=== PATIENT | male | born 1955 | race Asian ===

== ENCOUNTER → 2016-06-21 | Outpatient (CLI) | payer OTHER ==
[~2016-06-21] MED LIST: NEXIUM40 MG PO; NORCO 10-325 T1 EACH PO; ROBAXIN 750 MG750 M1 PO
== END ==
LOC: MRI 06-08 02:13
DX: M47.26 Other spondylosis with radiculopathy, lumbar region (principal); M48.06 Spinal stenosis, lumbar region; M54.5 Low back pain

== ENCOUNTER → 2016-07-19 | Outpatient (CLI) | payer OTHER ==
[~2016-07-19] VITALS: Ht 185.4 cm; Wt 97.1 kg
--- NOTE | ~2016-07-19 | HPC ---
[facility] [address] [place] [address] PAIN MANAGEMENT CONSULTATION Name: TYE BISWAS Room #: REG CECELIA Dove#: [id number] Admission: 07/19/16 Attend Phys: Bowen Mendez DO Discharge: Date of : 53 Report #: [id number] THIS REPORT FOR: //name// CC: JOANNA Mendez HISTORY OF PRESENT ILLNESS: The patient is a 60-year-old gentleman seen in consultation at the request of Dr. Mckoy for evaluation of pain in the low back and left leg. The patient had had prior symptoms well relieved with decompressive laminectomy in 2011. Symptoms began to recur about 4 years ago, in fact he has been unable to work for the past 4 years due to ongoing pain, primarily low back, left greater than right leg posterior aspect exacerbated with standing, walking and bending. He describes constant, intermittent, transient, burning, shooting, pulling pain; rates anywhere from 5-10 on a 0-10 visual analog scale. He has only taken olxr-yic-tdaovfn anti-inflammatory medications. He denies bowel or bladder continence changes. He does have subjective weakness and paresthesia in legs, left greater than right. REVIEW OF SYSTEMS: Complete review of systems attached to chart and gone over with the patient. He is , seen in the company of his who is supportive. She does some of the translating form, his Gambian is somewhat poor. He does not smoke, drink alcohol to excess. Other than back issues, he has enjoyed remarkably good health. He takes no other medications. PHYSICAL EXAMINATION: Shows 6 feet 1 inch, 206 pounds gentleman, BMI is 28.2 kilograms per meter squared. Cranial nerves 2-12 are grossly intact. Pupils equal, reactive to light and accommodation. Extraocular muscles are intact. There is no nystagmus or lateral gaze deviation. Blood pressure 102/66, pulse 74, respirations 16. Thyroid is unremarkable. Upper extremity strength is preserved. Heart is regular and rhythmical without murmur. Lungs clear to auscultation. Rises from chair using armrest. Has somewhat of a antalgic gait favoring the left leg. Diffuse tenderness across the low back. No discrete trigger points are noted. Right leg shows good strength 4-5/5 to all muscle groups tested, left leg does show diminished dorsiflexion and hip flexion strength is about 3/5, all else is perhaps 4/5. DIAGNOSTIC STUDIES: Include MRI of the lumbar spine from 06/21/2016 noting L4-L5 to have significant stenosis left greater than right neural foraminal narrowing. It does show history of left L4-L5 hemilaminectomy on this side. L3-L4 similarly shows stenosis down to 0.66 mm on this side. ASSESSMENT: Symptomatic lumbar radiculopathy by clinical exam and history. 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 We elected to proceed with the midline epidural injection today. Follow up in 3-4 weeks for reevaluation and consideration for left L4-L5 transforaminal epidural injection if indicated clinically at next visit. ASSESSMENT: Symptomatic lumbar radiculopathy status post decompressive laminectomy. PROCEDURE: Lumbar epidural injection under fluoroscopy. PROCEDURE NOTE: After both written and informed consent to include risk of spinal cord damage, increased pain, weakness and dural puncture, the patient was taken to the fluoroscopy suite, placed in the prone position. After sterile prep and drape, a skin wheal with lidocaine was raised. A 22-gauge epidural Tuohy needle was inserted in the midline at L4-L5 with good loss to resistance. Negative aspiration for cerebrospinal fluid or blood was noted. Then 1 mL of Omnipaque under biplanar fluoroscopy showed good spread within the epidural space. This was followed with 80 mg of triamcinolone plus 1 mL of 1.5% preservative-free Xylocaine, 0.5 mL Xylocaine was then injected to flush the needle; it was removed. The patient was monitored for an appropriate period of time and discharged in good and stable condition. <ELECTRONICALLY SIGNED> By: Bowen Mendez DO 07/20/16 0837 1216 [id number] Bowen Mendez DO /nt
[2016-07-19 10:48] VITALS: BP 102/66
== END | disposition home or self-care (01) ==
LOC: PAIN 07:13
DX: M54.16 Radiculopathy, lumbar region (principal); M48.06 Spinal stenosis, lumbar region

== ENCOUNTER → 2018-01-27 | Outpatient (CLI) | payer OTHER ==
[~2018-01-27] VITALS: Ht 185.4 cm; Wt 95.3 kg
[~2018-01-27] MED LIST changes: +COMBIGAN EYE DR10 ML OPHTHALMIC; +ESOMEPRAZOLE MA20 MG PO; +XALATAN2.5 ML OPHTHALMIC
--- NOTE | ~2018-01-27 | PATH ---
[facility] [address] [place] [address] PATHOLOGY RPT PROCEDURE Name: TYE BISWAS Room #: SREEDHAR RAI Caleb.#: [id number] Admission: 01/27/18 Date of : 53 Discharge: Report #: [id number] Path Case #: [id number] [facility] Accession Number: [id number] . 01 Material submitted: . PART A: RANDOM GASTRIC BX R/O H. PYLORI PART B: GASTRIC POLYP PART C: POLYP AT CECUM PART D: POLYP AT TRANSVERSE COLON PART E: POLYP AT SIGMOID COLON . 01 Clinical history: . Pre-OP DX: GERD, family HX colon cancer Post-OP DX: Gastritis, gastric polyp, colon polyps . 02 Diagnosis: A. Gastric mucosa, random rule out H. pylori, endoscopic biopsy: - Mild reactive gastropathy with focal intestinal metaplasia. - Negative for atrophy or dysplasia. - Negative for Helicobacter pylori (properly controlled immunohistochemical stain performed). . B. Gastric mucosa, gastric polyp, endoscopic biopsy: - Occasional dilated fundic gland, compatible with a minute fundic gland polyp. - Negative for dysplasia. . C. Polyp, at cecum, endoscopic biopsy: - Tubular adenoma. - Negative for high-grade dysplasia. . D. Polyp, at transverse colon, endoscopic biopsy: - Tubular adenoma. - Negative for high-grade dysplasia. . E. Polyp, at sigmoid colon, endoscopic biopsy: - Tubular adenoma. - Negative for high-grade dysplasia. (IUV:pit 01/28/2018) QTP/01/28/2018 . 02 Electronically signed: . Rhona Lozano MD, Pathologist NPI- [id number] . 01 Gross description: . A. Received in formalin labeled "Tye Biswas, random gastric BX, rule out [address] [address] PATHOLOGY RPT PROCEDURE Name: TYE BISWAS Room #: REG CECELIA Dove#: [id number] Admission: 01/27/18 Date of : 53 Discharge: Report #: [id number] Path Case #: [id number] H. pylori," are 4 segments of herrera soft tissue measuring 1.2 x 0.6 x 0.2 cm in aggregate dimensions and ranging from 0.4 to 0.5 cm in maximum dimension. The specimen is submitted entirely in cassette A1. . B. Received in formalin labeled "Tye Biswas, gastric polyp," are 2 segments of herrera soft tissue measuring 0.7 x 0.3 x 0.2 cm in aggregate dimensions and ranging from 0.3 to 0.4 cm in maximum dimension. The specimen is submitted entirely in cassette B1. . C. Received in formalin labeled "Tye Biswas, polyp at cecum," is a single segment of herrera soft tissue measuring 0.3 cm in maximum dimension. The specimen is entirely submitted in cassette C1. . D. Received in formalin labeled "Rachell Liming, polyp at transverse colon," are 5 segments of herrera soft tissue measuring 0.9 x 0.9 x 0.1 cm in aggregate dimensions and ranging from 0.2 to 0.5 cm in maximum dimension. The specimen is submitted entirely in cassette D1. . E. Received in formalin labeled "Rachell Liming, polyp at sigmoid colon," are 3 segments of herrera soft tissue measuring 0.8 x 0.5 x 0.1 cm in aggregate dimensions and ranging from 0.2 to 0.3 cm in maximum dimension. The specimen is submitted entirely in cassette E1. (TSD; 01/27/2018) TOB/TOB . 02 Pathologist provided ICD-10: K31.9, K31.7, D12.0, D12.3, D12.5 . 02 CPT . 803279, 211640, 376026, 439192, 855981, S54436 Specimen Comment: A courtesy copy of this report has been sent to Specimen Comment: [phone], . Specimen Comment: Report sent to / DR SPRINGER Performed at: [address], [place] [id number] MD Ruel oNvoa MD Phone: [phone] Performed at: [address] [id number] MD Rhona Lozano MD Phone: [phone]
== END | disposition home or self-care (01) ==
LOC: GI 10:35
DX: Z12.11 Encounter for screening for malignant neoplasm of colon (principal); Z80.0 Family history of malignant neoplasm of digestive organs; D12.0 Benign neoplasm of cecum; D12.3 Benign neoplasm of transverse colon; D12.5 Benign neoplasm of sigmoid colon; K31.89 Other diseases of stomach and duodenum; K31.7 Polyp of stomach and duodenum; K21.9 Gastro-esophageal reflux disease without esophagitis; H40.9 Unspecified glaucoma; Z86.010 Personal history of colon polyps; Z98.890 Other specified postprocedural states; Z87.891 Personal history of nicotine dependence
CPT/HCPCS: 62110; 62900

== ENCOUNTER → 2018-08-11 | Outpatient (CLI) | payer OTHER ==
[~2018-08-11] VITALS: Ht 185.4 cm; Wt 93.4 kg
[~2018-08-11] MED LIST changes: +BRIMONIDINE TART5 ML OPHTHALMIC; +TIMOLOL MALEATE5 M1 OPHTHALMIC
--- NOTE | 2018-08-12 17:07 | PATH ---
[facility] [place] [address] PATHOLOGY RPT PROCEDURE Name: TYE BISWAS Room #: REG PAPIGopi Kuo.Ora.#: [id number] ������������������ Admission: 08/11/18 ������������������ Date of : 53 Discharge: Report #: [id number] Path Case #: [id number] [facility] Accession Number: [id number] . 01 Material submitted: . PART A: stomach - ANTRUM - LESSER CURVATURE. Modifiers: lesser PART B: stomach - ANTRUM - GREATER CURVATURE. Modifiers: greater PART C: stomach - INCISURA PART D: stomach - GASTRIC BODY - LESSER CURVATURE. Modifiers: body, lesser PART E: stomach - GASTRIC BODY - GREATER CURVATURE. Modifiers: body, greater . 01 Clinical history: . Pre-OP DX: Pre malignant lesion Post-OP DX: Multiple BX, gastric mass, SB polyp . 02 Diagnosis: A. Gastric mucosa, antrum lesser curvature, endoscopic biopsy: - Mild chronic gastritis with features of reactive gastropathy. - Negative for intestinal metaplasia or atrophy. - Negative for Helicobacter pylori (properly controlled immunohistochemical stain performed). . B. Gastric mucosa, antrum greater curvature, endoscopic biopsy: - Moderate reactive gastropathy associated with intestinal metaplasia. - Negative for dysplasia or malignancy. - Negative for Helicobacter pylori (properly controlled immunohistochemical stain performed). . C. Gastric mucosa, incisura, endoscopic biopsy; - Mild chronic gastritis associated with features of reactive gastropathy. . - Negative for intestinal metaplasia or atrophy. - Negative for Helicobacter pylori (properly controlled immunohistochemical stain performed). . D. Gastric mucosa, gastric body-lesser curvature, endoscopic biopsy: - Mild chronic inflammation. - Negative for intestinal metaplasia or atrophy. - Negative for Helicobacter pylori (properly controlled immunohistochemical stain performed). . E. Gastric mucosa, gastric body-greater curvature, endoscopic biopsy: - Mild chronic inflammation. - Negative for intestinal metaplasia or atrophy. - Negative for Helicobacter pylori (properly controlled immunohistochemical stain performed). . 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 02 Electronically signed: . Rhona Lozano MD, Pathologist NPI- [id number] . 01 Gross description: . A. Received in formalin labeled "Rachell, Liming, antrum-lesser curvature," are 5 segments of herrera soft tissue measuring 1.5 x 0.9 x 0.3 cm in aggregate dimensions and ranging from 0.2 to 0.5 cm in maximum dimension. The specimen is submitted entirely in cassette A1. . B. Received in formalin labeled "Rachell, Liming, antrum-greater curvature," are 5 segments of herrera soft tissue measuring 1.5 x 0.9 x 0.4 cm in aggregate dimensions and ranging from 0.4 to 0.6 cm in maximum dimension. The specimen is submitted entirely in cassette B1. . C. Received in formalin labeled "Rachell, Liming, incisura," are 3 segments of herrera soft tissue measuring 1.1 x 1.0 x 0.2 cm in aggregate dimensions and ranging from 0.4 to 0.6 cm in maximum dimension. The specimen is submitted entirely in cassette C1. . D. Received in formalin labeled "Rachell, Liming, gastric body-lesser curvature," are 3 segments of herrera soft tissue measuring 1.2 x 0.8 x 0.4 cm in aggregate dimensions and ranging from 0.4 to 0.6 cm in maximum dimension. The specimen is submitted entirely in cassette D1. . E. Received in formalin labeled "Rachell, Liming, gastric body-greater curvature," are 4 segments of herrera soft tissue measuring 1.5 x 1.1 x 0.3 cm in aggregate dimensions and ranging from 0.2 to 0.5 cm in maximum dimension. The specimen is submitted entirely in cassette E1. (TSD; 08/11/2018) TOB/TOB . 02 Pathologist provided ICD-10: K29.50, K31.9 . 02 CPT . 426891, 124164, 303858, 651034, 416840, C52685 Specimen Comment: A courtesy copy of this report has been sent to Specimen Comment: [phone], . Specimen Comment: Report sent to / DR SPRINGER Performed at: [address], [place], [place] [id number] MD Ruel Novoa MD Phone: [phone] [address] [address] PATHOLOGY RPT PROCEDURE Name: TYE BISWAS Room #: REG CECELIA Ellis.#: [id number] ������������������ Admission: 08/11/18 ������������������ Date of : 53 Discharge: Report #: [id number] Path Case #: [id number] Performed at: 02 [facility] [address] [place], [place] [id number] MD Rhona Lozano MD Phone: [phone]
== END | disposition home or self-care (01) ==
LOC: GI 09:41
DX: K29.50 Unspecified chronic gastritis without bleeding (principal); K31.9 Disease of stomach and duodenum, unspecified; K31.7 Polyp of stomach and duodenum; H40.9 Unspecified glaucoma; Z98.890 Other specified postprocedural states; Z79.899 Other long term (current) drug therapy; Z87.891 Personal history of nicotine dependence; Z80.0 Family history of malignant neoplasm of digestive organs
CPT/HCPCS: 62110; 62900

== ENCOUNTER → 2018-09-18 | Outpatient (CLI) | payer OTHER ==
[2018-09-18 10:58] LABS: CREATININE 0.7 mg/dL (0.7-1.3)
== END ==
LOC: CAT 10:17
PROVIDERS: Nurse Practitioner
DX: K57.30 Diverticulosis of large intestine without perforation or abscess without bleeding (principal); N28.1 Cyst of kidney, acquired; K86.89 Other specified diseases of pancreas

== ENCOUNTER → 2018-09-29 | Outpatient (CLI) | payer OTHER | LOC: MRI 10:15 | DX: M47.26 Other spondylosis with radiculopathy, lumbar region (principal); M51.27 Other intervertebral disc displacement, lumbosacral region; M51.16 Intervertebral disc disorders with radiculopathy, lumbar region; M48.07 Spinal stenosis, lumbosacral region; M48.062 Spinal stenosis, lumbar region with neurogenic claudication; N28.1 Cyst of kidney, acquired ==

== ENCOUNTER → 2018-11-03 | Outpatient (CLI) | payer OTHER ==
[2018-11-03 08:58] LABS: HEMATOCRIT 43.1 % (42.0-52.0); HEMOGLOBIN 14.7 gm/dL (14.0-18.0); MCV 93.9 fL (80.0-100.0); RBC 4.59 mil/uL (4.50-6.00); RDW 12.7 % (10.5-14.5); WBC 4.8 thou/uL (4.0-11.0)
[2018-11-03 09:09] LABS: APTT 29.1 Seconds (24.5-32.8); PROTIME 10.4 Seconds (9.3-11.4)
== END ==
LOC: RAD 07:52
PROVIDERS: Radiology Diagnostic Radiology
DX: M51.16 Intervertebral disc disorders with radiculopathy, lumbar region (principal); M48.061 Spinal stenosis, lumbar region without neurogenic claudication; M41.86 Other forms of scoliosis, lumbar region; M51.35 Other intervertebral disc degeneration, thoracolumbar region; M51.37 Other intervertebral disc degeneration, lumbosacral region; N28.1 Cyst of kidney, acquired; M25.78 Osteophyte, vertebrae

== ENCOUNTER → 2020-04-27 | Outpatient (CLI) | payer OTHER ==
[2020-04-27 12:22] LABS: ABSOLUTE NEUTROPHILS 3.1 thou/uL (1.4-8.2); BASOPHILS 0.7 % (0.0-2.0); EOSINOPHILS 2.8 % (0.0-3.0); HEMATOCRIT 44.2 % (42.0-52.0); HEMOGLOBIN 14.7 gm/dL (14.0-18.0); LYMPHOCYTES 25.4 % (24.0-44.0); MCH 31.9 pg (26.0-34.0); MCHC 33.2 g/dL (28.0-37.0); MCV 96.3 fL (80.0-100.0); MONOCYTES 12.3 % (1.0-8.0); PLATELET COUNT 199 thou/uL (150-400); POLYS 58.8 % (36.0-66.0); RBC 4.59 mil/uL (4.50-6.00); RDW 12.7 % (10.5-14.5); WBC 5.3 thou/uL (4.0-11.0)
[2020-04-27 12:40] LABS: ALBUMIN 3.5 g/dL (3.4-5.0); ANION GAP 7 mmol/L (7-16); BUN 21 mg/dL (7-18); CHLORIDE 104 mmol/L (98-107); CHOLESTEROL 183 mg/dL (<200); CO2 28 mmol/L (21-32); CREATININE 0.9 mg/dL (0.7-1.3); GLUCOSE 99 mg/dL (74-106); HDL CHOLESTEROL 58 mg/dL (>40); LDL CHOLESTEROL 108 mg/dL (<100); POTASSIUM 4.3 mmol/L (3.5-5.1); SGOT 37 U/L (15-37); SGPT 62 U/L (30-65); SODIUM 139 mmol/L (136-145); TC:HDL 3.2 Ratio (Not establshd); TOTAL BILIRUBIN 0.5 mg/dL (0.2-1.0); TOTAL PROTEIN 7.5 g/dL (6.4-8.2); TRIGLYCERIDE 85 mg/dL (<150); VLDL 17 mg/dL (<40)
== END ==
LOC: ULTRA 11:01
PROVIDERS: ATTEND Nurse Practitioner
DX: N28.1 Cyst of kidney, acquired (principal)

== ENCOUNTER → 2020-05-06 | Outpatient (CLI) | payer OTHER ==
[2020-05-06 12:05] LABS: BASOPHILS 0.4 % (0.0-2.0); HEMOGLOBIN 14.8 gm/dL (14.0-18.0); MONOCYTES 7.5 % (1.0-8.0)
[2020-05-06 12:06] LABS: ABSOLUTE NEUTROPHILS 5.1 thou/uL (1.4-8.2); EOSINOPHILS 1.8 % (0.0-3.0); HEMATOCRIT 44.6 % (42.0-52.0); MCH 31.9 pg (26.0-34.0); MCHC 33.1 g/dL (28.0-37.0); MCV 96.4 fL (80.0-100.0); POLYS 69.3 % (36.0-66.0); RBC 4.63 mil/uL (4.50-6.00); RDW 12.9 % (10.5-14.5); WBC 10.6 thou/uL (4.0-11.0)
[2020-05-06 12:20] LABS: ALBUMIN 3.5 g/dL (3.4-5.0); ANION GAP 7 mmol/L (7-16); BUN 17 mg/dL (7-18); CALCIUM 8.7 mg/dL (8.5-10.1); CHLORIDE 103 mmol/L (98-107); CHOLESTEROL 187 mg/dL (<200); CO2 26 mmol/L (21-32); CREATININE 0.9 mg/dL (0.7-1.3); GLUCOSE 99 mg/dL (74-106); HDL CHOLESTEROL 55 mg/dL (>40); LDL CHOLESTEROL 117 mg/dL (<100); POTASSIUM 3.8 mmol/L (3.5-5.1); SGOT 21 U/L (15-37); SGPT 40 U/L (30-65); SODIUM 136 mmol/L (136-145); TC:HDL 3.4 Ratio (Not establshd); TOTAL BILIRUBIN 0.7 mg/dL (0.2-1.0); TOTAL PROTEIN 7.8 g/dL (6.4-8.2); TRIGLYCERIDE 78 mg/dL (<150); VLDL 16 mg/dL (<40)
[2020-05-06 12:40] LABS: PLATELET COUNT 193 thou/uL (150-400)
[2020-05-06 21:05] LABS: PSA 0.9 ng/mL (0.0-4.0); T4 (THYROXINE) 9.2 ug/dL (4.5-12.0)
== END ==
LOC: LAB 11:13
PROVIDERS: ATTEND Family Medicine
DX: Z00.00 Encounter for general adult medical examination without abnormal findings (principal)

== ENCOUNTER → 2020-11-16 | Outpatient (CLI) | payer OTHER ==
[~2020-11-16] VITALS: Ht 185.4 cm; Wt 99.8 kg
--- NOTE | ~2020-11-16 | P ---
[facility] [place] [address] PROCEDURE REPORT Name: TYE BISWAS Room #: REG CECELIA Dove#: [id number] Admission: 11/16/20 Attend Phys: Ramsey Delarosa Discharge: Date of : 53 Report #: [id number] THIS REPORT FOR: cc: Elpidio Mckoy MD, Neal A. MD McElhinney, Christian C. MD ~ cc: Elpidio Mckoy MD DATE OF SERVICE: 11/16/2020 PROCEDURE PERFORMED: Esophagogastroduodenoscopy with biopsies. HISTORY OF PRESENT ILLNESS: The patient is a 65-year-old male with a family history of gastric cancer, who underwent an upper endoscopy by my partner in 08/2018 for a previous history of gastric intestinal metaplasia as well. Random biopsies at that time were negative for H. pylori and intestinal metaplasia. The patient denies any symptoms at this time. He does use Nexium on a p.r.n. basis. Last use was approximately 10 days ago. Of note, on the previous upper endoscopy was a submucosal mass in the body. He was later evaluated by Dr. Ross at [facility] and this was found to be benign on IVUS. DESCRIPTION OF PROCEDURE: The risks and benefits of the procedure were explained to the patient, those risks including but not limited to bleeding, perforation and the risk of sedation. He understood these risks and gave informed consent. Sedation was given using propofol per Anesthesia. Next, using a standard upper endoscope, the scope was placed in the patient's mouth and advanced under direct vision through the esophagus, stomach and into the second portion of the duodenum. The esophagus was normal throughout. The GE junction was normal. Overall, the gastric mucosa was normal. In the fundus and body, there was a mild gastritis noted in the antrum. Biopsies were obtained, both in the body and the antrum. No evidence of ulcerations or erosions. The pylorus was normal and patent. The duodenal bulb, first and second portion were all normal. The scope was then withdrawn and the procedure terminated. The patient tolerated the procedure well. IMPRESSION: 1. Mild antral gastritis. 2. Otherwise, normal upper endoscopy. RECOMMENDATIONS: 1. Await biopsy results. 2. Continue to take PPI therapy on a p.r.n. basis. [address] [address] PROCEDURE REPORT Name: TYE BISWAS Room #: REG CECELIA Dove#: [id number] Admission: 11/16/20 Attend Phys: Ramsey Delarosa Discharge: Date of : 53 Report #: [id number] Thank you for allowing me to participate in his care. By: 1123 08 Ramsey Khan MD /nt
--- NOTE | 2020-11-17 14:07 | PATH ---
[facility] [place] [address] PATHOLOGY RPT PROCEDURE Name: TYE BISWAS Room #: REG CECELIA Derrell#: [id number] Admission: 11/16/20 Date of : 53 Discharge: Report #: [id number] Path Case #: [id number] [facility] Accession Number: [id number] . 01 Material submitted: . PART A: gastrointestinal site - BIOPSY GASTRITIS ANTRUM HX OF INTESTINAL METAPLASIA R/O H. PYLORI PART B: gastrointestinal site - BIOPSY GASTRIC BODY HX OF INTESTINAL METAPLASIA R/O H. PYLORI . 01 Clinical history: . EGD/ FAMILY HX GASTRIC CANCER . 02 Diagnosis: A. Gastric mucosa, gastritis antrum history of intestinal metaplasia, rule out H. pylori, endoscopic biopsy: - Moderate reactive gastropathy with intestinal metaplasia. - Negative for atrophy or dysplasia. - Negative for Helicobacter pylori (properly controlled immunohistochemical stain performed). . B. Gastric mucosa, gastritis body history of intestinal metaplasia, rule out H. pylori, endoscopic biopsy: - Mild chronic gastritis. - Negative for intestinal metaplasia or atrophy. - Negative for Helicobacter pylori (properly controlled immunohistochemical stain performed). (IUV:pit; 11/17/2020) QTP 11/17/2020 1225 Local . 02 Electronically signed: . Rhona Lozano MD, Pathologist NPI- [id number] . 01 Gross description: . A. The specimen is received in formalin, labeled "Tye Biswas, gastritis antrum". It consists of 3 herrera irregular soft tissue fragments measuring 0.6 x 0.5 x 0.2 cm in aggregate. The specimen is entirely submitted between sponges in A1. . B. The specimen is received in formalin, labeled "Tye Biswas, gastric body HX of intestinal metaplasia R/O H. pylori". It consists of 4 herrera irregular soft tissue fragments ranging from 0.2-0.5 cm in greatest dimension. The specimen is entirely submitted between sponges in B1. (MR; 11/16/2020) [facility] 11/16/2020 1638 Local . 02 [place] [address] PATHOLOGY RPT PROCEDURE Name: TYE BISWAS Room #: REG CECELIA Dove#: [id number] Admission: 11/16/20 Date of : 53 Discharge: Report #: [id number] Path Case #: [id number] Pathologist provided ICD-10: K29.50, K31.9 . 02 CPT . 401567, 763957, U77906 Specimen Comment: A courtesy copy of this report has been sent to [phone] Specimen Comment: [phone] Specimen Comment: Report sent to / DR SPRINGER Performed at: [address], [place] [id number] MD Kee Mccullough MD Phone: [phone] Performed at: [address] [id number] MD Rhona Lozano MD Phone: [phone]
== END | disposition home or self-care (01) ==
LOC: GI 10:19
PROVIDERS: ATTEND Specialist
DX: K29.50 Unspecified chronic gastritis without bleeding (principal); K31.9 Disease of stomach and duodenum, unspecified; Z80.0 Family history of malignant neoplasm of digestive organs; H40.9 Unspecified glaucoma; Z98.890 Other specified postprocedural states; Z79.899 Other long term (current) drug therapy; Z87.891 Personal history of nicotine dependence; Z20.822 Contact with and (suspected) exposure to COVID-19
CPT/HCPCS: 62110; 62900